=== PATIENT | male | born 1985 | race Caucasian/White ===

== ENCOUNTER 2024-05-28 13:13 | Inpatient (IN) | payer OTHER ==
[2024-05-28 14:25] VITALS: BMI 25.0
[2024-05-28] MEDS ORDERED: chlordiazePOXIDE HCL 25 MG CAPSULE PO SCH (17:00)
[2024-05-28] MEDS ORDERED: guaiFENesin 600 MG TABLET.ER (FP) PO PRN (17:21)
[2024-05-28] MEDS ORDERED: BENZOCAINE/MENTHOL (CHLORASEPTIC ) LOZENGE MM PRN (17:21)
[2024-05-28] MEDS ORDERED: IBUPROFEN 600 MG TABLET (FP) PO PRN (17:21)
[2024-05-28] MEDS ORDERED: NICOTINE POLACRILEX 2 MG LOZENGE BC PRN (17:21)
[2024-05-28] MEDS ORDERED: DICYCLOMINE HCL 10 MG CAPSULE PO PRN (17:21)
[2024-05-28] MEDS ORDERED: MAG HYDROX/AL HYDROX/SIMETH 30 ML UNIT-DOSE CUP PO PRN (17:21)
[2024-05-28] MEDS ORDERED: BISMUTH SUBSALICYLATE 524 MG/30 ML PO PRN (17:21)
[2024-05-28] MEDS ORDERED: MAGNESIUM HYDROX 2400MG/30ML ORAL SUSPENSION 30 ML CUP PO PRN (17:21)
[2024-05-28] MEDS ORDERED: NICOTINE POLACRILEX 2 MG GUM BUC PRN (17:21)
[2024-05-28] MEDS ORDERED: BENZONATATE 200 MG CAPSULE PO PRN (17:21)
[2024-05-28] MEDS ORDERED: P-EPHED 60MG/TRIPROLIDI 2.5MG TABLET PO PRN (17:21)
[2024-05-28] MEDS ORDERED: POLYETHYLENE GLYCOL (HEALTHYLAX) 3350 17 GM PACKET PO PRN (17:21)
[2024-05-28] MEDS ORDERED: ACETAMINOPHEN 325 MG TABLET (FP) PO PRN (17:21)
[2024-05-28] MEDS ORDERED: LOPERAMIDE HCL 2 MG CAPSULE PO PRN (17:21)
[2024-05-28] MEDS ORDERED: IBUPROFEN 400 MG TABLET (FP) PO PRN (17:21)
[2024-05-28] MEDS ORDERED: chlordiazePOXIDE HCL 25 MG CAPSULE PO PRN (17:24)
[2024-05-28] MEDS ORDERED: chlordiazePOXIDE HCL 25 MG CAPSULE ONE (19:02)
[2024-05-28] MEDS: chlordiazePOXIDE HCL 25 MG CAPSULE PO SCH (19:04)
[2024-05-28] MEDS: ONDANSETRON *ODT* 4 MG TABLET SL PRN (19:39)
[2024-05-28] MEDS: THIAMINE 100 MG TABLET PO SCH (22:23)
[2024-05-28] MEDS: MELATONIN 5 MG TABLETS PO SCH (22:23)
[2024-05-28] MEDS: METHOCARBAMOL 500 MG TABLET PO PRN (22:25)
[2024-05-29 08:40] VITALS: BP 103/67; PULSE 79; RESP 18; TEMP 98.6
[2024-05-29] MEDS: PRENATAL VITAMINS W/ FOLIC ACID TABLET (FP) PO SCH (10:07)
[2024-05-29 12:52] LABS: HEMATOCRIT 33.4 % (35.4-49); HEMOGLOBIN 11.5 GM/dL (11.7-16.9); MCH 30.9 pg (25.7-33.7); MCHC 34.3 g/dl (32.0-35.9); MEAN CELL VOLUME 90.1 fl (80-96); MEAN PLT VOLUME 9.2 fl (7.5-11.1); PLATELET COUNT 152 10^3/uL (134-434); POTASSIUM 3.8 mmol/L (3.5-5.1); RBC 3.71 M/mm3 (4.00-5.60); RDW 17.1 % (11.9-15.9); WHITE BLOOD COUNT 3.4 K/mm3 (4.0-10.0)
[2024-05-29 13:01] LABS: ALBUMIN 3.6 g/dl (3.4-5.0); BLOOD UREA NITROGEN 5.1 mg/dL (7-18); CALCIUM 8.7 mg/dL (8.5-10.1)
[2024-05-29 13:05] LABS: CREATININE 0.8 mg/dL (0.55-1.3)
[2024-05-29 13:06] LABS: TOT PROT 7.8 g/dl (6.4-8.2)
[2024-05-29 13:09] LABS: BILIRUBIN,TOTAL 1.8 mg/dL (0.2-1)
[2024-05-30] MEDS ORDERED: chlordiazePOXIDE HCL 25 MG CAPSULE PO SCH (05:00)
[2024-05-31] MEDS ORDERED: chlordiazePOXIDE HCL 10 MG CAPSULE PO PRN
[2024-05-31] MEDS ORDERED: chlordiazePOXIDE HCL 10 MG CAPSULE PO SCH (05:00)
[2024-06-01] MEDS ORDERED: chlordiazePOXIDE HCL 10 MG CAPSULE PO SCH (05:00)
[2024-06-02] MEDS ORDERED: chlordiazePOXIDE HCL 10 MG CAPSULE PO ONE (05:00)
== END 2024-05-29 11:14 | disposition left against medical advice (07) | DRG 770 ==
LOC: YASAS 13:13 → Y6N 18:40
PROVIDERS: ADMIT Allergy & Immunology; ATTEND Surgery
PROC: HZ2ZZZZ Detoxification Services for Substance Abuse Treatment (ICD-10-PCS; principal; 2024-05-28)
DX: F10.230 Alcohol dependence with withdrawal, uncomplicated (principal); F12.10 Cannabis abuse, uncomplicated; F17.210 Nicotine dependence, cigarettes, uncomplicated; Z59.02 Unsheltered homelessness
CPT/HCPCS: 36415; 80053; 80305; 80307; 82962; 85027; 86780; 93005; 93010; Q0162

== ENCOUNTER 2024-09-07 11:08 | Inpatient (IN) | payer OTHER ==
[2024-09-07 11:27] VITALS: BMI 23.3
[2024-09-07] MEDS ORDERED: POLYETHYLENE GLYCOL (HEALTHYLAX) 3350 17 GM PACKET PO PRN (11:41)
[2024-09-07] MEDS ORDERED: BISMUTH SUBSALICYLATE 262 MG/15 ML BTL PO PRN (11:41)
[2024-09-07] MEDS ORDERED: IBUPROFEN 400 MG TABLET (FP) PO PRN (11:41)
[2024-09-07] MEDS ORDERED: NALOXONE (NARCAN) HCL 4 MG/0.1 ML SPRAY NS PRN (11:41)
[2024-09-07] MEDS ORDERED: chlordiazePOXIDE HCL 25 MG CAPSULE PO PRN (11:41)
[2024-09-07] MEDS ORDERED: MAGNESIUM HYDROX 2400MG/30ML ORAL SUSPENSION 30 ML CUP PO PRN (11:41)
[2024-09-07] MEDS ORDERED: BENZONATATE 200 MG CAPSULE PO PRN (11:41)
[2024-09-07] MEDS ORDERED: LOPERAMIDE HCL 2 MG CAPSULE PO PRN (11:41)
[2024-09-07] MEDS ORDERED: guaiFENesin 600 MG TABLET.ER (FP) PO PRN (11:41)
[2024-09-07] MEDS ORDERED: DICYCLOMINE HCL 10 MG CAPSULE PO PRN (11:41)
[2024-09-07] MEDS ORDERED: NALOXONE (NYS OPIOID OVERDOSE PROGRAM) 4 MG/0.1 ML SPRAY NS ONE (11:41)
[2024-09-07] MEDS ORDERED: MAG HYDROX/AL HYDROX/SIMETH 30 ML UNIT-DOSE CUP PO PRN (11:41)
[2024-09-07] MEDS ORDERED: ONDANSETRON *ODT* 4 MG TABLET SL PRN (11:41)
[2024-09-07] MEDS ORDERED: BENZOCAINE/MENTHOL (CHLORASEPTIC ) LOZENGE MM PRN (11:41)
[2024-09-07] MEDS ORDERED: IBUPROFEN 600 MG TABLET (FP) PO PRN (11:41)
[2024-09-07] MEDS: METHYL SALICYLATE/MENTHOL 30 GM TUBE TP SCH ×2 (13:55→20:17)
[2024-09-07] MEDS: NALTREXONE HCL 50 MG TABLET PO ONE (14:40)
[2024-09-07] MEDS: chlordiazePOXIDE HCL 25 MG CAPSULE PO SCH (17:41)
[2024-09-07] MEDS: ACETAMINOPHEN 325 MG TABLET (FP) PO PRN (17:43)
[2024-09-07] MEDS: THIAMINE 100 MG TABLET PO SCH (22:41)
[2024-09-07] MEDS: METHOCARBAMOL 500 MG TABLET PO PRN (22:41)
[2024-09-07] MEDS: MELATONIN 5 MG TABLETS PO SCH (22:41)
[2024-09-08] MEDS: NALTREXONE HCL 50 MG TABLET PO SCH (10:16)
[2024-09-08] MEDS: PRENATAL VITAMINS W/ FOLIC ACID TABLET (FP) PO SCH (10:16)
[2024-09-08 14:35] LABS: HEMATOCRIT 33.8 % (35.4-49); HEMOGLOBIN 11.3 GM/dL (11.7-16.9); MCH 33.6 pg (25.7-33.7); MCHC 33.4 g/dl (32.0-35.9); MEAN CELL VOLUME 100.6 fl (80-96); MEAN PLT VOLUME 9.6 fl (7.5-11.1); PLATELET COUNT 153 10^3/uL (134-434); RBC 3.36 M/mm3 (4.00-5.60); RDW 15.1 % (11.9-15.9); WHITE BLOOD COUNT 6.3 K/mm3 (4.0-10.0)
[2024-09-08 14:53] LABS: POTASSIUM 3.5 mmol/L (3.5-5.1)
[2024-09-08 14:58] LABS: CALCIUM 9.1 mg/dL (8.5-10.1)
[2024-09-08 14:59] LABS: ALBUMIN 3.1 g/dl (3.4-5.0); BLOOD UREA NITROGEN 3.2 mg/dL (7-18)
[2024-09-08 15:02] LABS: CREATININE 0.7 mg/dL (0.55-1.3)
[2024-09-08 15:03] LABS: BILIRUBIN,TOTAL 1.7 mg/dL (0.2-1)
[2024-09-08 15:04] LABS: TOT PROT 7.1 g/dl (6.4-8.2)
[2024-09-08] MEDS ORDERED: diazePAM 5 MG TABLET PO PRN (15:38)
[2024-09-08] MEDS: diazePAM 5 MG TABLET PO SCH (17:59)
[2024-09-09] MEDS ORDERED: chlordiazePOXIDE HCL 25 MG CAPSULE PO SCH (05:00)
[2024-09-09] MEDS: diazePAM 5 MG TABLET PO SCH (06:03)
[2024-09-09] MEDS: INDOMETHACIN 25 MG CAPSULE PO SCH (15:47)
[2024-09-10] MEDS ORDERED: chlordiazePOXIDE HCL 10 MG CAPSULE PO PRN
[2024-09-10] MEDS ORDERED: chlordiazePOXIDE HCL 10 MG CAPSULE PO SCH (05:00)
[2024-09-10] MEDS: diazePAM 5 MG TABLET PO SCH (05:41)
[2024-09-10] MEDS: hydrOXYzine PAMOATE 25 MG CAPSULE (FP) PO PRN (22:28)
[2024-09-11] MEDS ORDERED: chlordiazePOXIDE HCL 10 MG CAPSULE PO SCH (05:00)
[2024-09-11] MEDS: diazePAM 5 MG TABLET PO ONE (06:08)
[2024-09-12] MEDS ORDERED: chlordiazePOXIDE HCL 10 MG CAPSULE PO ONE (05:00)
[2024-09-12 10:09] VITALS: BP 109/67; PULSE 79; RESP 16; TEMP 98.1
== END 2024-09-12 10:25 | disposition home or self-care (01) | DRG 775 ==
LOC: YASAS 11:08 → Y6N 12:01
PROVIDERS: ADMIT Allergy & Immunology; ATTEND Surgery
PROC: HZ2ZZZZ Detoxification Services for Substance Abuse Treatment (ICD-10-PCS; principal; 2024-09-07)
DX: F10.230 Alcohol dependence with withdrawal, uncomplicated (principal); F17.210 Nicotine dependence, cigarettes, uncomplicated; F10.282 Alcohol dependence with alcohol-induced sleep disorder; F41.9 Anxiety disorder, unspecified; R07.9 Chest pain, unspecified; R74.01 Elevation of levels of liver transaminase levels; Z87.820 Personal history of traumatic brain injury; Z56.0 Unemployment, unspecified; Z59.00 Homelessness unspecified
CPT/HCPCS: 36415; 71046-TC-FY; 80053; 80305; 80307; 83036; 84450; 84484; 85027; 86780; 93005; 93010

== ENCOUNTER 2025-03-10 10:54 | Inpatient (IN) | payer OTHER ==
[2025-03-10 11:41] VITALS: BMI 25.0
[2025-03-10] MEDS ORDERED: POLYETHYLENE GLYCOL (HEALTHYLAX) 3350 17 GM PACKET PO PRN (12:15)
[2025-03-10] MEDS ORDERED: LOPERAMIDE HCL 2 MG CAPSULE PO PRN (12:15)
[2025-03-10] MEDS ORDERED: BENZONATATE 200 MG CAPSULE PO PRN (12:15)
[2025-03-10] MEDS ORDERED: DICYCLOMINE HCL 10 MG CAPSULE PO PRN (12:15)
[2025-03-10] MEDS ORDERED: ONDANSETRON *ODT* 4 MG TABLET SL PRN (12:15)
[2025-03-10] MEDS ORDERED: IBUPROFEN 400 MG TABLET (FP) PO PRN (12:15)
[2025-03-10] MEDS ORDERED: BISMUTH SUBSALICYLATE 262 MG/15 ML BTL PO PRN (12:15)
[2025-03-10] MEDS ORDERED: MAG HYDROX/AL HYDROX/SIMETH 30 ML UNIT-DOSE CUP PO PRN (12:15)
[2025-03-10] MEDS ORDERED: guaiFENesin 600 MG TABLET.ER (FP) PO PRN (12:15)
[2025-03-10] MEDS ORDERED: MAGNESIUM HYDROX 2400MG/30ML ORAL SUSPENSION 30 ML CUP PO PRN (12:15)
[2025-03-10] MEDS ORDERED: NALOXONE (NARCAN) HCL 4 MG/0.1 ML SPRAY NS PRN (12:15)
[2025-03-10] MEDS ORDERED: BENZOCAINE/MENTHOL (CHLORASEPTIC ) LOZENGE MM PRN (12:15)
[2025-03-10] MEDS ORDERED: chlordiazePOXIDE HCL 25 MG CAPSULE PO PRN (12:15)
[2025-03-10] MEDS: ACETAMINOPHEN 325 MG TABLET (FP) PO PRN (15:43)
[2025-03-10] MEDS: NALTREXONE HCL 50 MG TABLET PO ONE (17:25)
[2025-03-10] MEDS: chlordiazePOXIDE HCL 25 MG CAPSULE PO SCH (17:25)
[2025-03-10] MEDS: IBUPROFEN 600 MG TABLET (FP) PO PRN (22:22)
[2025-03-10] MEDS: THIAMINE 100 MG TABLET PO SCH (22:22)
[2025-03-10] MEDS: MELATONIN 5 MG TABLETS PO SCH (22:22)
[2025-03-10] MEDS: METHOCARBAMOL 500 MG TABLET PO PRN (22:22)
[2025-03-11] MEDS: PRENATAL VITAMINS W/ FOLIC ACID TABLET (FP) PO SCH (10:21)
[2025-03-11] MEDS: NALTREXONE HCL 50 MG TABLET PO SCH (10:21)
[2025-03-11 11:16] LABS: HEMATOCRIT 36.3 % (40.1-51.0); HEMOGLOBIN 11.3 g/dL (13.7-17.5); MCHC 31.1 g/dl (32.3-36.5); MEAN PLT VOLUME 11.3 fl (9.4-12.4); PLATELET COUNT 173 x10^3/uL (163-337); RDW 17.7 % (12.0-15.6)
[2025-03-11 11:32] LABS: POTASSIUM 3.6 mmol/L (3.5-5.1)
[2025-03-11 11:41] LABS: ALBUMIN 3.6 g/dl (3.4-5.0)
[2025-03-11 11:45] LABS: BILIRUBIN,TOTAL 0.8 mg/dL (0.2-1); CREATININE 0.8 mg/dL (0.55-1.3)
[2025-03-11 11:51] LABS: BLOOD UREA NITROGEN 5.9 mg/dL (7-18)
[2025-03-11] MEDS: MELATONIN 5 MG TABLETS PO SCH (22:12)
[2025-03-12] MEDS: chlordiazePOXIDE HCL 25 MG CAPSULE PO SCH (05:50)
[2025-03-12] MEDS: hydrOXYzine PAMOATE 25 MG CAPSULE (FP) PO PRN (19:42)
[2025-03-13] MEDS ORDERED: chlordiazePOXIDE HCL 10 MG CAPSULE PO PRN
[2025-03-13] MEDS: chlordiazePOXIDE HCL 10 MG CAPSULE PO SCH (05:53)
[2025-03-14] MEDS: chlordiazePOXIDE HCL 10 MG CAPSULE PO SCH (05:49)
[2025-03-14] MEDS: LACTULOSE 20 GM/30 ML UDC (FOR ORAL USE ONLY) PO SCH (16:29)
[2025-03-15] MEDS: chlordiazePOXIDE HCL 10 MG CAPSULE PO ONE (05:27)
[2025-03-15 06:19] VITALS: BP 106/70; PULSE 78; RESP 16; TEMP 97.6
== END 2025-03-15 09:26 | disposition home or self-care (01) | DRG 775 ==
LOC: YASAS 10:54 → Y3N 15:07
PROVIDERS: ADMIT Allergy & Immunology; ATTEND Allergy & Immunology
PROC: HZ2ZZZZ Detoxification Services for Substance Abuse Treatment (ICD-10-PCS; principal; 2025-03-10)
DX: F10.230 Alcohol dependence with withdrawal, uncomplicated (principal); F17.210 Nicotine dependence, cigarettes, uncomplicated; F10.282 Alcohol dependence with alcohol-induced sleep disorder; F32.A Depression, unspecified; Z87.820 Personal history of traumatic brain injury; Z56.0 Unemployment, unspecified; Z59.00 Homelessness unspecified
CPT/HCPCS: 36415; 80053; 80305; 80307; 82140; 85027; 86780; 93005; 93010

== ENCOUNTER 2025-07-08 09:45 | Inpatient (IN) | payer OTHER ==
[2025-07-08 10:22] VITALS: BMI 23.3
[2025-07-08] MEDS ORDERED: BISMUTH SUBSALICYLATE 524 MG/30 ML PO PRN (11:15)
[2025-07-08] MEDS ORDERED: LOPERAMIDE HCL 2 MG CAPSULE PO PRN (11:15)
[2025-07-08] MEDS ORDERED: guaiFENesin 600 MG TABLET.ER (FP) PO PRN (11:15)
[2025-07-08] MEDS ORDERED: MAGNESIUM HYDROX 2400MG/30ML ORAL SUSPENSION 30 ML CUP PO PRN (11:15)
[2025-07-08] MEDS ORDERED: ONDANSETRON *ODT* 4 MG TABLET SL PRN (11:15)
[2025-07-08] MEDS ORDERED: IBUPROFEN 400 MG TABLET (FP) PO PRN (11:15)
[2025-07-08] MEDS ORDERED: hydrOXYzine PAMOATE 25 MG CAPSULE (FP) PO PRN (11:15)
[2025-07-08] MEDS ORDERED: BENZOCAINE/MENTHOL (CHLORASEPTIC ) LOZENGE MM PRN (11:15)
[2025-07-08] MEDS ORDERED: MAG HYDROX/AL HYDROX/SIMETH 30 ML UNIT-DOSE CUP PO PRN (11:15)
[2025-07-08] MEDS ORDERED: DICYCLOMINE HCL 10 MG CAPSULE PO PRN (11:15)
[2025-07-08] MEDS ORDERED: NALOXONE (NARCAN) HCL 4 MG/0.1 ML SPRAY NS PRN (11:15)
[2025-07-08] MEDS ORDERED: IBUPROFEN 600 MG TABLET (FP) PO PRN (11:15)
[2025-07-08] MEDS ORDERED: POLYETHYLENE GLYCOL (HEALTHYLAX) 3350 17 GM PACKET PO PRN (11:15)
[2025-07-08] MEDS ORDERED: BENZONATATE 200 MG CAPSULE PO PRN (11:15)
[2025-07-08] MEDS ORDERED: ACETAMINOPHEN 325 MG TABLET (FP) ONE (12:34)
[2025-07-08] MEDS: ACETAMINOPHEN 325 MG TABLET (FP) PO PRN (12:47)
[2025-07-08] MEDS: THIAMINE 100 MG TABLET PO SCH (22:31)
[2025-07-08] MEDS: MELATONIN 5 MG TABLETS PO SCH (22:31)
[2025-07-09 09:19] LABS: MCHC 33.1 g/dl (32.3-36.5); MEAN CELL VOLUME 84.7 fl (79.0-92.2); MEAN PLT VOLUME 12.7 fl (9.4-12.4); RDW 16.4 % (12.0-15.6)
[2025-07-09 09:27] LABS: CO2 29.0 mmol/L (21-32); GLUCOSE,RANDOM 217.0 mg/dL (74-106)
[2025-07-09 09:29] LABS: SGPT/ALT 80.0 U/L (13-61)
[2025-07-09 09:30] LABS: CREATININE 1.1 mg/dL (0.55-1.3); SGOT/AST 300.0 U/L (15-37)
[2025-07-09 09:31] LABS: TOT PROT 9.1 g/dl (6.4-8.2)
[2025-07-09 09:33] LABS: ALK PHOS 267.0 U/L (45-117)
[2025-07-09] MEDS: PRENATAL VITAMINS W/ FOLIC ACID TABLET (FP) PO SCH (10:04)
[2025-07-09] MEDS: METHOCARBAMOL 500 MG TABLET PO PRN (10:04)
[2025-07-11 12:02] LABS: CO2 32.0 mmol/L (21-32); GLUCOSE,RANDOM 118.0 mg/dL (74-106)
[2025-07-11 12:04] LABS: SGOT/AST 233.0 U/L (15-37); SGPT/ALT 72.0 U/L (13-61)
[2025-07-11 12:05] LABS: CREATININE 0.6 mg/dL (0.55-1.3)
[2025-07-11 12:06] LABS: TOT PROT 7.4 g/dl (6.4-8.2)
[2025-07-11 12:07] LABS: ALK PHOS 237.0 U/L (45-117)
[2025-07-12 08:58] VITALS: BP 119/85; PULSE 98; RESP 14; TEMP 97.6
[2025-07-12] MEDS: POTASSIUM CHLORIDE ORAL LIQUID 20 MEQ/15 ML PO ONE (09:35)
== END 2025-07-12 12:22 | disposition other institution (70) | DRG 775 ==
LOC: YASAS 09:45 → Y3N 12:28
PROVIDERS: ADMIT Allergy & Immunology; ATTEND Allergy & Immunology
PROC: HZ2ZZZZ Detoxification Services for Substance Abuse Treatment (ICD-10-PCS; principal; 2025-07-08)
DX: F10.230 Alcohol dependence with withdrawal, uncomplicated (principal)
CPT/HCPCS: 36415; 80053; 80305; 80307; 85027; 86780; 93005; 93010